=== PATIENT | female | born 1990 | race Caucasian/White ===

== ENCOUNTER 2019-03-21 03:04 | Inpatient (IN) | payer MEDICAID ==
[2019-03-21] MEDS ORDERED: Carboprost Tromethamine 250 MCG/1 ML Amp IM PRN (03:06)
[2019-03-21] MEDS ORDERED: Methylergonovine 0.2 MG/1 ML Amp IM PRN (03:06)
[2019-03-21] MEDS ORDERED: Nalbuphine 10 MG/1 ML Vial IVPUSH PRN (03:06)
[2019-03-21] MEDS ORDERED: Butorphanol 1 MG/ML SDV IVPUSH PRN (03:06)
[2019-03-21] MEDS ORDERED: Sodium Chloride 0.9% 10 ML Syringe FLUSH PRN (03:06)
[2019-03-21] MEDS ORDERED: Water For Irrigation,Sterile 1,000 ML Container IRR PRN (03:06)
[2019-03-21] MEDS ORDERED: Lidocaine 1% 50 ML MDV INJECT PRN (03:06)
[2019-03-21] MEDS ORDERED: Sodium Chloride 0.9% 10 ML SDV IV PRN (03:06)
[2019-03-21] MEDS ORDERED: Tranexamic Acid 1,000 MG in Sodium Chloride 0.9% 100 ML IV PRN (03:06)
[2019-03-21] MEDS ORDERED: Misoprostol 200 MCG Tab PO PRN (03:06)
[2019-03-21] MEDS ORDERED: Oxytocin/0.9 % Sodium Chloride 30 UNIT/500 ML BAG IV SCH (03:15)
[2019-03-21] MEDS ORDERED: Lactated Ringers 1,000 ML IV SCH (03:15)
[2019-03-21] MEDS ORDERED: Benzocaine/Menthol 20%-0.5% Spray 78 GM Cannister TOP PRN (04:03)
[2019-03-21] MEDS ORDERED: Witch Hazel Medicated Pads 40/Jar TOP PRN (04:03)
[2019-03-21] MEDS ORDERED: Bisacodyl 10 MG Supp RECTAL PRN (04:03)
[2019-03-21] MEDS ORDERED: Lanolin 100% Cream 7 GM Tube TOP PRN (04:03)
[2019-03-21] MEDS ORDERED: Docusate Sodium 100 MG Cap PO PRN (04:03)
[2019-03-21] MEDS ORDERED: Acetaminophen 500 MG Tab PO PRN (04:03)
[2019-03-21] MEDS ORDERED: oxyCODONE 5 MG Tab PO PRN (04:03)
[2019-03-21] MEDS ORDERED: Ibuprofen 800 MG Tab PO PRN (04:03)
[2019-03-21] MEDS ORDERED: Diphtheria,Pertussis(Acell),Tetanus Vaccine 0.5 ML Syringe IM ONE (04:03)
--- NOTE | 2019-03-21 04:10 | PCM.OPNOTE ---
- General Post-Op/Procedure Note Date of Surgery/Procedure: 03/21/19 Operative Procedure(s): Spontaneous vaginal delivery Findings: Live male infant, SLIM position, Apgars 8/9, weight 3720g, umbilical cord gases pending Shoulder dystocia lasting less than 30 seconds Placenta intact with 3-vessel cord Pre Op Diagnosis: 28yo at 39w4d by patient-stated ZURDO Post-Op Diagnosis: 28yo s/p spontaneous vaginal delivery. Shoulder dystocia Primary Surgeon: Lalita Waters Pathology: Placenta, cord blood, cord gases EBL in mLs: 200 Complications: None Condition: Good
[2019-03-21] MEDS ORDERED: FLU Vacc QS2019-20(6MOS+)/PF 60 MCG/0.5 ML SYRINGE IM ONE (09:00)
--- NOTE | 2019-03-21 10:32 | HP ---
DATE OF : 1990 PRIMARY CARE PHYSICIAN: LUCAS Barriga CHIEF COMPLAINT: Contractions. HISTORY OF PRESENT ILLNESS: This is a 28-year-old, G3, P1-0-0-1 at 39 weeks and 4 days gestation by patient stated ZURDO, who presents in active labor. She reports contractions began at 5 or 6 p.m. She denies leakage of fluid and vaginal bleeding. She reports feeling baby move. She has not received care for this and her due date is based on her last menstrual period. PAST OBSTETRIC HISTORY: Spontaneous vaginal delivery x1, spontaneous , status post D and C x1. PAST GYNECOLOGIC HISTORY: Denies any history of abnormal Pap, last several years ago. PAST MEDICAL HISTORY: Denies. PAST SURGICAL HISTORY: D and C, colonoscopy, endoscopy. SOCIAL HISTORY: Tobacco use. Denies other drug or alcohol abuse. FAMILY HISTORY: Noncontributory. ALLERGIES: No known drug allergies. MEDICATIONS: None. PHYSICAL EXAMINATION: VITAL SIGNS: Blood pressure 128/56, heart rate 116, heart rate 130 baseline, moderate variability, positive accelerations, early decelerations. Tocometer contractions every 2 to 3 minutes. GENERAL: No apparent distress. CARDIOVASCULAR: Regular rate and rhythm. LUNGS: Clear to auscultation. ABDOMEN: Soft, gravid, nondistended, nontender. EXTREMITIES: No edema. GENITOURINARY: On sterile vaginal exam, complete cervical dilation with bulgy bag of water. ASSESSMENT AND PLAN: 1. This is a 28-year-old, G3, P1-0-0-1 at 39 and 4 weeks who presents in active labor with full cervical dilation. 2. GBS unknown. Per guidelines, no antibiotics indicated at this time. 3. No care. We will obtain labs and urine drug screen. 4. Anticipate spontaneous vaginal delivery shortly. KEYON / TONI /[id number] NETO
--- NOTE | 2019-03-21 10:44 | OR ---
SURGEON: Lalita Waters MD DATE OF PROCEDURE: 03/21/2019 PREOPERATIVE DIAGNOSIS: A 28-year-old G3, P1, at 39 weeks and 4 days gestation by patient stated ZURDO. POSTOPERATIVE DIAGNOSES: 1. A 28-year-old G3, P2, status post spontaneous vaginal delivery. 2. Shoulder dystocia. PROCEDURE: Spontaneous vaginal delivery. ANESTHESIA: None. ESTIMATED BLOOD LOSS: 200 mL. FINDINGS: Live male in right occiput anterior position. score 8 and 9 at 1 and 5 minutes respectively. Weight 3720 g. Cord gases pending. Shoulder dystocia lasting less than 30 seconds, relieved with suprapubic pressure and Oscar maneuver. Placenta intact and with 3-vessel cord. DESCRIPTION OF PROCEDURE: The patient presented to Labor and Delivery after contractions began at approximately 5 p.m. On vaginal exam, she was found to be completely dilated with a bulging bag of water. The patient was admitted to Labor and Delivery for expectant management of labor. She had received no care. She was GBS unknown status per guidelines. No antibiotics were indicated. The patient began pushing. Spontaneous rupture of membranes occurred with clear fluid noted. Anterior lip of the cervix was noted after rupture of membranes. This was reduced well with the patient pushing. The patient pushed to deliver a live male infant. The head was delivered and the shoulders did not follow quickly. The hips were flexed with Oscar maneuver and suprapubic pressure was given along with maternal pushing efforts. The shoulder was subsequently delivered followed by the remainder of the body and nuchal cord x1. It was reduced after delivery of the body. The was placed on the maternal abdomen for nursing care. After approximately 45 seconds, the cord was clamped and cut. The Pitocin was begun for uterine tone and prevention of hemorrhage. The placenta delivered via the Cullen-Lynn maneuver and intact with 3-vessel cord. Cord gases were obtained. The perineum was inspected and no lacerations were noted. The fundus was firm 2 cm below the umbilicus. Bleeding was scant. The patient and infant tolerated the delivery well. [id number] / MODL /[id number]
[2019-03-22] MEDS ORDERED: Measles, Mumps & Rubella Vaccine 0.5 ML SDV SUBCUT ONE (08:37)
--- NOTE | 2019-03-22 08:42 | PCM.PNPP ---
- General Info Date of Service: 03/22/19 Admission Dx/Problem (Free Text): Minimal lochia. Functional Status: Reports: Pain Controlled, Tolerating Diet, Ambulating, Urinating - Review of Systems General: Reports: No Symptoms HEENT: Reports: No Symptoms Pulmonary: Reports: No Symptoms. Denies: Shortness of Breath Cardiovascular: Reports: No Symptoms. Denies: Chest Pain Gastrointestinal: Reports: No Symptoms Genitourinary: Reports: No Symptoms Musculoskeletal: Reports: No Symptoms Skin: Reports: No Symptoms Neurological: Reports: No Symptoms Psychiatric: Reports: No Symptoms - Patient Data Vital Signs - Most Recent: Last Vital Signs Temp 36.0 C 03/22/19 08:00 Pulse 72 03/22/19 08:00 Resp 17 03/22/19 08:00 BP 106/64 03/22/19 08:00 Pulse Ox 98 03/22/19 08:00 Weight - Most Recent: 160 kg Lab Results - Last 24 Hours: Laboratory Results - last 24 hr 03/22/19 Range/Units 05:42 Hgb 12.0 (12.0-16.0) g/dL Hct 36.2 (36.0-46.0) % Med Orders - Current: Current Medications Acetaminophen (Tylenol Extra Strength) 1,000 mg PO Q6H PRN PRN Reason: Pain Last Admin: 03/21/19 13:48 Dose: 1,000 mg Benzocaine/Menthol (Dermoplast Pain Relief 20%-0.5% [place]) 78 gm TOP ASDIRECTED PRN PRN Reason: Perineal Comfort Measure Bisacodyl (Dulcolax) 10 mg RECTAL ONETIME PRN PRN Reason: Constipation Butorphanol Tartrate (Stadol) 1 mg IVPUSH ASDIRECTED PRN PRN Reason: Pain Carboprost Tromethamine (Hemabate Ds) 250 mcg IM ASDIRECTED PRN PRN Reason: Post Hemorrhage Docusate Sodium (Colace) 100 mg PO BID PRN PRN Reason: Constipation Emollient Ointment (Lansinoh Hpa) 0 gm TOP ASDIRECTED PRN PRN Reason: Sore Nipples Lactated Ringer's (Ringers, Lactated) 1,000 mls @ 150 mls/hr IV ASDIRECTED RAJEEV Oxytocin/Sodium Chloride (Oxytocin 30 Unit/500 Ml-Ns) 30 unit in 500 mls @ 999 mls/hr IV TITRATE RAJEEV Last Admin: 03/21/19 03:45 Dose: 999 mls/hr Tranexamic Acid 1,000 mg/ (Sodium Chloride) 110 mls @ 660 mls/hr IV ONETIME PRN PRN Reason: Bleeding Ibuprofen (Motrin) 800 mg PO Q8H PRN PRN Reason: Pain Lidocaine HCl (Xylocaine 1%) 50 ml INJECT ONETIME PRN PRN Reason: Laceration repair Measles/Mumps/Rubella Vaccine Live (M-M-R Ii Vaccine) 0.5 ml SUBCUT .ONCE ONE Stop: 03/22/19 08:38 Methylergonovine Maleate (Methergine) 0.2 mg IM ASDIRECTED PRN PRN Reason: Post Hemorrhage Misoprostol (Cytotec) 200 mcg PO ONETIME PRN PRN Reason: Post Hemorrhage Nalbuphine HCl (Nubain) 10 mg IVPUSH ASDIRECTED PRN PRN Reason: Pain (severe 7-10) Oxycodone HCl (Oxycodone) 5 mg PO Q2H PRN PRN Reason: Pain Sodium Chloride (Saline Flush) 10 ml FLUSH ASDIRECTED PRN PRN Reason: Keep Vein Open Sodium Chloride (Normal Saline) 10 ml IV ASDIRECTED PRN PRN Reason: IV Use Sterile Water (Sterile Water For Irrigation) 1,000 ml IRR ASDIRECTED PRN PRN Reason: delivery Last Admin: 03/21/19 03:35 Dose: 1,000 ml Witch Lucille (Tucks) 1 pad TOP ASDIRECTED PRN PRN Reason: comfort care Discontinued Medications Diphtheria/Tetanus/Acell Pertussis (Adacel) 0.5 ml IM .ONCE ONE Stop: 03/21/19 04:04 Influenza Virus Vaccine (Pharmacy To Dose - Influenza Vaccine) 1 each IM ONETIME ONE Stop: 03/21/19 05:26 Influenza Virus Vaccine (Fluzone Quad [id number] Syringe) 60 mcg IM .ONCE ONE Stop: 03/21/19 09:01 - Interaction Disposition, : at Bedside Infant Feeding: Attempted ; Nursed Fair/Poor, Bottle Fed Infant - Recovery Exam Fundal Tone: Firm Fundal Level: 1 Fingerbreadths Below Umbilicus Fundal Placement: Midline Lochia Amount: Scant Lochia Color: Rubra/Red Episiotomy/Laceration: None Bladder Status: Voiding Urinary Elimination: Voided - Exam General: Alert, Oriented Neck: Supple Lungs: Clear to Auscultation, Normal Respiratory Effort Cardiovascular: Regular Rate, Regular Rhythm GI/Abdominal Exam: Soft, Non-Tender Extremities: Normal Inspection, No Pedal Edema Skin: Warm, Dry, Intact Neurological: No New Focal Deficit Psy/Mental Status: Alert, Normal Affect, Normal Mood - Problem List & Annotations (1) Vaginal delivery SNOMED Code(s): 591357628 Code(s): O80 - ENCOUNTER FOR FULL-TERM UNCOMPLICATED DELIVERY Status: Acute Current Visit: No - Problem List Review Problem List Initiated/Reviewed/Updated: Yes - My Orders Last 24 Hours: My Active Orders 03/22/19 08:37 Vaccines to be Administered [RC] PER UNIT ROUTINE Measles, Mumps & Rubella [M-M-R II Vaccine] 0.5 ml SUBCUT .ONCE ONE - Assessment Assessment:: 28yo PPD#1 s/p at 39w4d - Plan Plan:: 1. Anticipate discharge home tomorrow, after baby cleared by peds - staying due to GBS unknown status. 2. Breast and bottle feeding. 3. Will receive Tdap, MMR, and influenza vaccines tomorrow.
[2019-03-23] MEDS ORDERED: FLU Vacc QS2019-20(6MOS+)/PF 60 MCG/0.5 ML SYRINGE IM ONE (12:00)
[2019-03-23] MEDS ORDERED: Measles, Mumps & Rubella Vaccine 0.5 ML SDV SUBCUT ONE (12:00)
--- NOTE | 2019-03-23 12:03 | PCM.PNPP ---
- General Info Date of Service: 03/23/19 Functional Status: Reports: Pain Controlled, Tolerating Diet, Ambulating, Urinating - Review of Systems General: Reports: No Symptoms HEENT: Reports: No Symptoms Pulmonary: Reports: No Symptoms Cardiovascular: Reports: No Symptoms Gastrointestinal: Reports: No Symptoms Genitourinary: Reports: No Symptoms Musculoskeletal: Reports: No Symptoms Skin: Reports: No Symptoms Neurological: Reports: No Symptoms Psychiatric: Reports: No Symptoms - Patient Data Vital Signs - Most Recent: Last Vital Signs Temp 36.4 C 03/23/19 07:40 Pulse 62 03/23/19 07:40 Resp 16 03/23/19 07:40 BP 116/58 L 03/23/19 07:40 Pulse Ox 96 03/23/19 07:40 Weight - Most Recent: 352 lb 11.834 oz Lab Results - Last 24 Hours: Laboratory Results - last 24 hr 03/21/19 Range/Units 04:35 RPR Non Reactive (NonRea<1:1) Med Orders - Current: Current Medications Acetaminophen (Tylenol Extra Strength) 1,000 mg PO Q6H PRN PRN Reason: Pain Last Admin: 03/21/19 13:48 Dose: 1,000 mg Benzocaine/Menthol (Dermoplast Pain Relief 20%-0.5% [place]) 78 gm TOP ASDIRECTED PRN PRN Reason: Perineal Comfort Measure Bisacodyl (Dulcolax) 10 mg RECTAL ONETIME PRN PRN Reason: Constipation Butorphanol Tartrate (Stadol) 1 mg IVPUSH ASDIRECTED PRN PRN Reason: Pain Carboprost Tromethamine (Hemabate Ds) 250 mcg IM ASDIRECTED PRN PRN Reason: Post Hemorrhage Docusate Sodium (Colace) 100 mg PO BID PRN PRN Reason: Constipation Emollient Ointment (Lansinoh Hpa) 0 gm TOP ASDIRECTED PRN PRN Reason: Sore Nipples Last Admin: 03/22/19 15:52 Dose: 1 applic Lactated Ringer's (Ringers, Lactated) 1,000 mls @ 150 mls/hr IV ASDIRECTED RAJEEV Oxytocin/Sodium Chloride (Oxytocin 30 Unit/500 Ml-Ns) 30 unit in 500 mls @ 999 mls/hr IV TITRATE RAJEEV Last Admin: 03/21/19 03:45 Dose: 999 mls/hr Tranexamic Acid 1,000 mg/ (Sodium Chloride) 110 mls @ 660 mls/hr IV ONETIME PRN PRN Reason: Bleeding Ibuprofen (Motrin) 800 mg PO Q8H PRN PRN Reason: Pain Influenza Virus Vaccine (Fluzone Quad Syringe) 60 mcg IM .ONCE ONE Stop: 03/23/19 12:01 Lidocaine HCl (Xylocaine 1%) 50 ml INJECT ONETIME PRN PRN Reason: Laceration repair Measles/Mumps/Rubella Vaccine Live (M-M-R Ii Vaccine) 0.5 ml SUBCUT .ONCE ONE Stop: 03/23/19 12:01 Methylergonovine Maleate (Methergine) 0.2 mg IM ASDIRECTED PRN PRN Reason: Post Hemorrhage Misoprostol (Cytotec) 200 mcg PO ONETIME PRN PRN Reason: Post Hemorrhage Nalbuphine HCl (Nubain) 10 mg IVPUSH ASDIRECTED PRN PRN Reason: Pain (severe 7-10) Oxycodone HCl (Oxycodone) 5 mg PO Q2H PRN PRN Reason: Pain Sodium Chloride (Saline Flush) 10 ml FLUSH ASDIRECTED PRN PRN Reason: Keep Vein Open Sodium Chloride (Normal Saline) 10 ml IV ASDIRECTED PRN PRN Reason: IV Use Sterile Water (Sterile Water For Irrigation) 1,000 ml IRR ASDIRECTED PRN PRN Reason: delivery Last Admin: 03/21/19 03:35 Dose: 1,000 ml [place] (Tucks) 1 pad TOP ASDIRECTED PRN PRN Reason: comfort care Discontinued Medications Diphtheria/Tetanus/Acell Pertussis (Adacel) 0.5 ml IM .ONCE ONE Stop: 03/21/19 04:04 Last Admin: 03/22/19 18:15 Dose: Not Given Influenza Virus Vaccine (Pharmacy To Dose - Influenza Vaccine) 1 each IM ONETIME ONE Stop: 03/21/19 05:26 Influenza Virus Vaccine (Fluzone Quad Syringe) 60 mcg IM .ONCE ONE Stop: 03/21/19 09:01 Measles/Mumps/Rubella Vaccine Live (M-M-R Ii Vaccine) 0.5 ml SUBCUT .ONCE ONE Stop: 03/22/19 08:38 Last Admin: 03/23/19 08:54 Dose: Not Given - Infant Interaction Infant Disposition, : [place] at Bedside Infant Feeding: Continues to Breastfeed Support Person: Mother - Recovery Exam Fundal Tone: Firm Fundal Level: At Umbilicus Fundal Placement: Midline Lochia Amount: Scant Lochia Color: Rubra/Red Perineum Description: Intact, Minimal Bruising/Swelling Episiotomy/Laceration: None Bladder Status: Voiding Urinary Elimination: Voided - Exam General: Alert, Oriented, No Acute Distress HEENT: Pupils Equal, Pupils Reactive Neck: Supple, Trachea Midline Lungs: Normal Respiratory Effort GI/Abdominal Exam: Soft, Non-Tender Extremities: Normal Inspection, Non-Tender, No Pedal Edema Skin: Warm, Dry, Intact Neurological: No New Focal Deficit Psy/Mental Status: Alert, Normal Affect, Normal Mood - Problem List Review Problem List Initiated/Reviewed/Updated: Yes - My Orders Last 24 Hours: My Active Orders 03/23/19 11:53 Ready for Discharge [RC] PER UNIT ROUTINE - Assessment Assessment:: 28yo PPD#2 s/p at 39w4d - Plan Plan:: 1. Anticipate discharge home today 2. Breast and bottle feeding. 3. Will receive Tdap, MMR, and influenza vaccines tomorrow 4. Hgb 12.0 , stable with minimal bleeding 5. Plan to follow up with [facility] at 6wks
== END 2019-03-23 13:50 | disposition home or self-care (01) | DRG 807 ==
LOC: MW.OBCHECK 03:04 → MW.OB 03:05 → MW.OBCHECK 03:06 → OBSVTOIN 03:45 → MW.OB 09:25
PROVIDERS: ADMIT Obstetrics & Gynecology; ATTEND Obstetrics & Gynecology
PROC: 10E0XZZ Delivery of Products of Conception, External Approach (ICD-10-PCS; principal; 2019-03-21)
DX: O66.0 Obstructed labor due to shoulder dystocia (principal); O69.81X0 Labor and delivery complicated by cord around neck, without compression, not applicable or unspecified; Z23 Encounter for immunization; Z3A.39 39 weeks gestation of pregnancy; Z37.0 Single live birth
CPT/HCPCS: 36415; 59025; 59409; 80305-QW; 82803; 85014; 85018; 85027; 86593; 86762; 86803; 86850; 86900; 86901; 87340; 90471; 90686; 90707; A9270-GY; J2590

== ENCOUNTER 2020-03-31 09:15 | Inpatient (IN) | payer MEDICAID ==
[2020-03-31] MEDS ORDERED: Sodium Chloride 0.9% 10 ML SDV IV PRN (09:17)
[2020-03-31] MEDS ORDERED: Lidocaine 1% 50 ML MDV INJECT PRN (09:17)
[2020-03-31] MEDS ORDERED: Carboprost Tromethamine 250 MCG/1 ML Amp IM PRN (09:17)
[2020-03-31] MEDS ORDERED: Water For Irrigation,Sterile 1,000 ML Container IRR PRN (09:17)
[2020-03-31] MEDS ORDERED: Misoprostol 200 MCG Tab PO PRN (09:17)
[2020-03-31] MEDS ORDERED: Tranexamic Acid 1,000 MG in Sodium Chloride 0.9% 100 ML IV PRN (09:17)
[2020-03-31] MEDS ORDERED: Methylergonovine 0.2 MG/1 ML Amp IM PRN (09:17)
[2020-03-31] MEDS ORDERED: Sodium Chloride 0.9% 10 ML Syringe FLUSH PRN (09:17)
[2020-03-31] MEDS ORDERED: Sodium Chloride 0.9% 2.5 ML Syringe FLUSH PRN (09:17)
[2020-03-31] MEDS ORDERED: Oxytocin/0.9 % Sodium Chloride 30 UNIT/500 ML BAG IV SCH (09:30)
[2020-03-31] MEDS ORDERED: Lactated Ringers 1,000 ML IV SCH (09:30)
[2020-03-31] MEDS ORDERED: oxyCODONE 5 MG Tab PO PRN (09:40)
[2020-03-31] MEDS ORDERED: Docusate Sodium 100 MG Cap PO PRN (09:40)
[2020-03-31] MEDS ORDERED: Witch Hazel Medicated Pads 40/Jar TOP PRN (09:40)
[2020-03-31] MEDS ORDERED: Ibuprofen 400 MG Tab PO PRN (09:40)
[2020-03-31] MEDS ORDERED: Bisacodyl 10 MG Supp RECTAL PRN (09:40)
[2020-03-31] MEDS ORDERED: Lanolin 100% Cream 7 GM Tube TOP PRN (09:40)
[2020-03-31] MEDS ORDERED: Acetaminophen 500 MG Tab PO PRN ×2 (09:40)
[2020-03-31] MEDS ORDERED: Benzocaine/Menthol 20%-0.5% Spray 78 GM Cannister TOP PRN (09:40)
[2020-03-31] MEDS ORDERED: Ibuprofen 800 MG Tab ONE (09:47)
--- NOTE | 2020-03-31 12:04 | PCM.LDHP ---
L&D History of Present Illness - General Date of Service: 03/31/20 Admit Problem/Dx: Patient Status Order with Admit Dx/Problem 03/31/20 09:17 Patient Status [ADT] Routine 03/31/20 09:40 Patient Status [ADT] Routine Admission Diagnosis/Problem Admission Diagnosis/Problem Source of Information: Patient History Limitations: Reports: No Limitations - History of Present Illness Pain Score: 5 Improves with: Reports: None Worsens with: Reports: None Associated Symptoms: Reports: N - Related Data Allergies/Adverse Reactions: Allergies Allergy/AdvReac Type Severity Reaction Status Date / Time No Known Allergies Allergy Verified 03/31/20 10:14 Home Medications: Home Meds Acetaminophen [Tylenol Extra Strength] 500 mg PO Q4H PRN #1 tab 12/02/13 [Rx] Docusate Sodium [Colace] 100 mg PO BID PRN cap 03/23/19 [Rx] Ibuprofen [Motrin] 800 mg PO Q8H PRN tablet 03/23/19 [Rx] bisacodyL [Dulcolax] 10 mg RECTAL ONETIME PRN supp 03/23/19 [Rx] Past Medical History - Past Health History Medical/Surgical History: Denies Medical/Surgical History POLISHER NUMERAL History: Reports: , Spontaneous , Therapeutic , Other (See Below) Other OB/BYN History: D&C 2011 Social & Family History - Family History Family Medical History: Noncontributory - Caffeine Use Caffeine Use: Reports: Soda H&P Review of Systems - Review of Systems: Review Of Systems: See Below General: Reports: No Symptoms HEENT: Reports: No Symptoms Pulmonary: Reports: No Symptoms Cardiovascular: Reports: No Symptoms Gastrointestinal: Reports: No Symptoms Genitourinary: Reports: No Symptoms Musculoskeletal: Reports: No Symptoms Skin: Reports: No Symptoms Psychiatric: Reports: No Symptoms Neurological: Reports: No Symptoms Hematologic/Lymphatic: Reports: No Symptoms Immunologic: Reports: No Symptoms L&D Exam - Exam Exam: See Below - Vital Signs Weight: 63.503 kg - Exam General: Alert, Oriented HEENT: PERRLA, Conjunctiva Clear, EACs Clear, EOMI, Hearing Intact, Mucosa Moist & Monon, Nares Patent, Normal Nasal Septum, Posterior Pharynx Clear, TMs Clear Neck: Supple, Trachea Midline Lungs: Clear to Auscultation, Normal Respiratory Effort Cardiovascular: Regular Rate, Regular Rhythm GI/Abdominal Exam: Normal Bowel Sounds, Soft, Non-Tender, No Organomegaly, No Distention, No Abnormal Bruit, No Mass, Pelvis Stable Rectal Exam: Normal Exam, Normal Rectal Tone Genitourinary: Normal external exam, Normal bimanual exam, Normal speculum exam Back Exam: Normal Inspection, Full Range of Motion Extremities: Normal Inspection, Normal Range of Motion, Non-Tender, No Pedal Edema, Normal Capillary Refill Skin: Warm, Dry, Intact Neurological: Cranial Nerves Intact, Reflexes Equal Bilateral Psychiatric: Alert, Normal Affect, Normal Mood - Patient Data Lab Results Last 24 hrs: Laboratory Results - last 24 hr 03/31/20 03/31/20 03/31/20 Range/Units 09:49 09:49 10:28 WBC 11.16 H (4.0-11.0) K/uL RBC 3.94 L (4.30-5.90) M/uL Hgb 11.5 L (12.0-16.0) g/dL Hct 35.3 L (36.0-46.0) % MCV 89.6 (80.0-98.0) fL MCH 29.2 (27.0-32.0) pg MCHC 32.6 (31.0-37.0) g/dL RDW Std Deviation 43.7 (28.0-62.0) fl RDW Coeff of [place] 13 (11.0-15.0) % Plt Count 274 (150-400) K/uL MPV 9.80 (7.40-12.00) fL Nucleated RBC % 0.0 /100WBC Nucleated RBCs # 0 K/uL SARS-CoV-2 RNA (CARINE) NEGATIVE (NEGATIVE) Blood Type A POSITIVE Antibody Screen NEGATIVE Result Diagrams: 03/31/20 09:49 Problem List Initiated/Reviewed/Updated: Yes Orders Last 24hrs: Active Orders 24 hr Category Date Time Status Patient Status [ADT] Routine ADT 03/31/20 09:40 Active May Shower [RC] ASDIRECTED Care 03/31/20 09:17 Active Peripheral IV Care [RC] PRN Care 03/31/20 09:17 Active Up ad Lila [RC] ASDIRECTED Care 03/31/20 09:17 Active Vital Signs [RC] PER UNIT ROUTINE Care 03/31/20 09:17 Active Regular Diet [DIET] Diet 03/31/20 Breakfast Active CHLAMYDIA AND GONORRHEA BY TMA Routine Lab 03/31/20 09:17 Ordered CULTURE GROUP B STREP [RM] Routine Lab 03/31/20 09:17 Ordered DRUG SCREEN, URINE [URCHEM] Routine Lab 03/31/20 09:17 Ordered HEMOGLOBIN/HEMATOCRIT,HH [HEME] Timed Lab 04/01/20 05:11 Ordered RPR (SYPHILIS SERO) W/ RFLX [REF] Routine Lab 03/31/20 09:49 Received UA RFX TRAVIS AND CULT IF INDIC [URIN] Routine Lab 03/31/20 09:17 Ordered Acetaminophen [Tylenol Extra Strength] Med 03/31/20 09:40 Active 1,000 mg PO Q4H PRN Acetaminophen [Tylenol Extra Strength] Med 03/31/20 09:40 Active 500 mg PO Q4H PRN Benzocaine/Menthol [Dermoplast Pain Relief 20%-0.5% Med 03/31/20 09:40 Active [place]] 78 gm TOP ASDIRECTED PRN Carboprost Tromethamine [Hemabate DS] Med 03/31/20 09:17 Active 250 mcg IM ASDIRECTED PRN Docusate Sodium [Colace] Med 03/31/20 09:40 Active 100 mg PO BID PRN Ibuprofen [Motrin] Med 03/31/20 09:40 Active 400 mg PO Q4H PRN Ibuprofen [Motrin] Med 03/31/20 09:40 Active 800 mg PO Q6H PRN Lactated Ringers [Ringers, Lactated] 1,000 ml Med 03/31/20 09:30 Active IV ASDIRECTED Lanolin [Lansinoh HPA] Med 03/31/20 09:40 Active See Dose Instructions TOP ASDIRECTED PRN Lidocaine 1% [Xylocaine 1%] Med 03/31/20 09:17 Active 50 ml INJECT ONETIME PRN Methylergonovine [Methergine] Med 03/31/20 09:17 Active 0.2 mg IM ASDIRECTED PRN Oxytocin/0.9 % Sodium Chloride [Oxytocin 30 Unit/500 ML Med 03/31/20 09:30 Active -NS] 30 unit in 500 ml IV TITRATE Sodium Chloride 0.9% [Normal Saline] Med 03/31/20 09:17 Active 10 ml IV ASDIRECTED PRN Sodium Chloride 0.9% [Saline Flush] Med 03/31/20 09:17 Active 10 ml FLUSH ASDIRECTED PRN Sodium Chloride 0.9% [Saline Flush] Med 03/31/20 09:17 Active 2.5 ml FLUSH ASDIRECTED PRN Tranexamic Acid [Cyklokapron] 1,000 mg Med 03/31/20 09:17 Active Sodium Chloride 0.9% [Normal Saline] 100 ml IV ONETIME Water For Irrigation,Sterile [Sterile Water for Med 03/31/20 09:17 Active Irrigation] 1,000 ml IRR ASDIRECTED PRN bisacodyL [Dulcolax] Med 03/31/20 09:40 Active 10 mg RECTAL ONETIME PRN miSOPROStoL [Cytotec] Med 03/31/20 09:17 Active 200 mcg PO ONETIME PRN oxyCODONE Med 03/31/20 09:40 Active 5 mg PO Q2H PRN witch Lucille [Tucks] Med 03/31/20 09:40 Active 1 pad TOP ASDIRECTED PRN Assess Lochia [WOMSER] Per Unit Routine Oth 03/31/20 09:40 Ordered Assess Uterine Involution [WOMSER] Per Unit Routine Oth 03/31/20 09:40 Ordered Peripheral IV Discontinue [OM.PC] Routine Oth 03/31/20 09:40 Ordered Peripheral IV Insertion Adult [OM.PC] Routine Oth 03/31/20 09:17 Ordered Resuscitation Status Routine Resus Stat 03/31/20 09:17 Ordered Medication Orders Acetaminophen (Tylenol Extra Strength) 500 mg PO Q4H PRN PRN Reason: Pain Acetaminophen (Tylenol Extra Strength) 1,000 mg PO Q4H PRN PRN Reason: Pain Benzocaine/Menthol (Dermoplast Pain Relief 20%-0.5% [place]) 78 gm TOP ASDIRECTED PRN PRN Reason: Perineal Comfort Measure Bisacodyl (Dulcolax) 10 mg RECTAL ONETIME PRN PRN Reason: Constipation Carboprost Tromethamine (Hemabate Ds) 250 mcg IM ASDIRECTED PRN PRN Reason: Post Hemorrhage Docusate Sodium (Colace) 100 mg PO BID PRN PRN Reason: Constipation Emollient Ointment (Lansinoh Hpa) 0 gm TOP ASDIRECTED PRN PRN Reason: Sore Nipples Oxytocin/Sodium Chloride (Oxytocin 30 Unit/500 Ml-Ns) 30 unit in 500 mls @ 999 mls/hr IV TITRATE [facility] Last Admin: 03/31/20 09:25 Dose: 999 mls/hr Documented by: LASHONDA Tranexamic Acid 1,000 mg/ (Sodium Chloride) 110 mls @ 660 mls/hr IV ONETIME PRN PRN Reason: Bleeding Lactated Ringer's (Ringers, Lactated) 1,000 mls @ 150 mls/hr IV ASDIRECTED RAJEEV Ibuprofen (Motrin) 400 mg PO Q4H PRN PRN Reason: Pain Ibuprofen (Motrin) 800 mg PO Q6H PRN PRN Reason: Pain Lidocaine HCl (Xylocaine 1%) 50 ml INJECT ONETIME PRN PRN Reason: Laceration repair Methylergonovine Maleate (Methergine) 0.2 mg IM ASDIRECTED PRN PRN Reason: Post Hemorrhage Misoprostol (Cytotec) 200 mcg PO ONETIME PRN PRN Reason: Post Hemorrhage Oxycodone HCl (Oxycodone) 5 mg PO Q2H PRN PRN Reason: Pain Sodium Chloride (Saline Flush) 10 ml FLUSH ASDIRECTED PRN PRN Reason: Keep Vein Open Sodium Chloride (Saline Flush) 2.5 ml FLUSH ASDIRECTED PRN PRN Reason: Keep Vein Open Sodium Chloride (Normal Saline) 10 ml IV ASDIRECTED PRN PRN Reason: IV Use Sterile Water (Sterile Water For Irrigation) 1,000 ml IRR ASDIRECTED PRN PRN Reason: delivery Witch [place] (Tucks) 1 pad TOP ASDIRECTED PRN PRN Reason: comfort care Assessment/Plan Comment:: This patient is a 29 she is para 2002 she have no care in [facility] she have a home delivery and complicated and she is came to labor and delivery for evaluation of checkup at the time of their arrival the patient have completely delivered the placenta is delivered the fetus is crying and doing well pelvic examination revealed there is no tear no active bleeding. She will be admitted for 24-hour for observation
[2020-03-31] MEDS: Ibuprofen 800 MG Tab PO PRN (19:31)
[2020-03-31] MEDS ORDERED: Diphtheria,Pertussis(Acell),Tetanus Vaccine 0.5 ML Syringe IM ONE (21:41)
[2020-04-01] MEDS: Ibuprofen 800 MG Tab PO PRN (04:45)
[2020-04-01] MEDS ORDERED: FLU Vacc QS2020-21 36MOS UP/PF 60 MCG/0.5 ML Syringe IM ONE (09:00)
--- NOTE | 2020-04-01 09:08 | PCM.DCSUM1 ---
Discharge Summary - Hospital Course Free Text/Narrative:: Discharge home with baby. Follow up in the clinic in 6 weeks for routine visit; sooner, if needed. Diagnosis: Stroke: No Modified Yola Scale: No Symptoms at All Modified Yola Scale Score: 0 - Discharge Data Discharge Date: 04/01/20 Discharge Disposition: Home, Self-Care 01 Condition: Good - Referral to Home Health Primary Care Physician: PCP None - Discharge Diagnosis/Problem(s) (1) Vaginal delivery SNOMED Code(s): 574357896 ICD Code: O80 - ENCOUNTER FOR FULL-TERM UNCOMPLICATED DELIVERY Status: Acute Current Visit: No - Patient Instructions Diet: Usual Diet as Tolerated, Regular Diet as Tolerated, Drink 8-10+ Glasses/Day Activity: Non Weight Bearing, No Strenuous Activities, Rest and Relax Today Driving: May Drive Today Showering/Bathing: May Shower Notify Provider of: Fever, Increased Pain, Swelling and Redness, Drainage - Discharge Plan Home Medications: Home Meds Acetaminophen [Tylenol Extra Strength] 500 mg PO Q4H PRN #1 tab 12/02/13 [Rx] Docusate Sodium [Colace] 100 mg PO BID PRN cap 03/23/19 [Rx] Ibuprofen [Motrin] 800 mg PO Q8H PRN tablet 03/23/19 [Rx] bisacodyL [Dulcolax] 10 mg RECTAL ONETIME PRN supp 03/23/19 [Rx] Referrals: [facility] [Outside] Santhosh Covington MD [Physician] - 05/12/20 3:00 pm - Discharge Summary/Plan Comment DC Time >30 min.: Yes - General Info Date of Service: 04/01/20 Admission Dx/Problem (Free Text: Patient Status Order with Admit Dx/Problem 03/31/20 09:17 Patient Status [ADT] Routine 03/31/20 09:40 Patient Status [ADT] Routine Admission Diagnosis/Problem Admission Diagnosis/Problem Functional Status: Reports: Pain Controlled - Review of Systems General: Reports: No Symptoms HEENT: Reports: No Symptoms Pulmonary: Reports: No Symptoms Cardiovascular: Reports: No Symptoms Gastrointestinal: Reports: No Symptoms Genitourinary: Reports: No Symptoms Musculoskeletal: Reports: No Symptoms Skin: Reports: No Symptoms Neurological: Reports: No Symptoms Psychiatric: Reports: No Symptoms - Patient Data Vitals - Most Recent: Last Vital Signs Temp 97.6 F 04/01/20 04:41 Pulse 86 04/01/20 04:41 Resp 17 03/31/20 21:42 BP 112/67 04/01/20 04:41 Pulse Ox 97 04/01/20 04:41 Weight - Most Recent: 140 lb Lab Results - Last 24 hrs: Laboratory Results - last 24 hr 03/31/20 03/31/20 03/31/20 Range/Units 09:49 09:49 10:28 WBC 11.16 H (4.0-11.0) K/uL RBC 3.94 L (4.30-5.90) M/uL Hgb 11.5 L (12.0-16.0) g/dL Hct 35.3 L (36.0-46.0) % MCV 89.6 (80.0-98.0) fL MCH 29.2 (27.0-32.0) pg MCHC 32.6 (31.0-37.0) g/dL RDW Std Deviation 43.7 (28.0-62.0) fl RDW Coeff of [place] 13 (11.0-15.0) % Plt Count 274 (150-400) K/uL MPV 9.80 (7.40-12.00) fL Nucleated RBC % 0.0 /100WBC Nucleated RBCs # 0 K/uL Urine Color Urine Appearance Urine pH (5.0-8.0) Ur Specific [place] (1.001-1.035) Urine Protein (NEGATIVE) mg/dL Urine Glucose (UA) (NEGATIVE) mg/dL Urine Ketones (NEGATIVE) mg/dL Urine Occult Blood (NEGATIVE) Urine Nitrite (NEGATIVE) Urine Bilirubin (NEGATIVE) Urine Urobilinogen (<2.0) EU/dL Ur Leukocyte Esterase (NEGATIVE) Urine RBC (0-2/HPF) Urine WBC (0-5/HPF) Ur Epithelial Cells (NONE-FEW) Urine Bacteria (NEGATIVE) Urine Mucus (NONE-MOD) Urine Opiates Screen (NEGATIVE) Ur Oxycodone Screen (NEGATIVE) Urine Methadone Screen (NEGATIVE) Ur Barbiturates Screen (NEGATIVE) Ur Phencyclidine Scrn (NEGATIVE) Ur Amphetamine Screen (NEGATIVE) U Methamphetamines Scrn (NEGATIVE) U Benzodiazepines Scrn (NEGATIVE) U Cocaine Metab Screen (NEGATIVE) U Marijuana (THC) Screen (NEGATIVE) SARS-CoV-2 RNA (CARINE) NEGATIVE (NEGATIVE) Blood Type A POSITIVE Antibody Screen NEGATIVE 03/31/20 03/31/20 04/01/20 Range/Units 21:43 21:43 05:45 WBC (4.0-11.0) K/uL RBC (4.30-5.90) M/uL Hgb 9.9 L (12.0-16.0) g/dL Hct 30.0 L (36.0-46.0) % MCV (80.0-98.0) fL MCH (27.0-32.0) pg MCHC (31.0-37.0) g/dL RDW Std Deviation (28.0-62.0) fl RDW Coeff of [place] (11.0-15.0) % Plt Count (150-400) K/uL MPV (7.40-12.00) fL Nucleated RBC % /100WBC Nucleated RBCs # K/uL Urine Color YELLOW Urine Appearance HAZY Urine pH 6.0 (5.0-8.0) Ur Specific [place] 1.025 (1.001-1.035) Urine Protein NEGATIVE (NEGATIVE) mg/dL Urine Glucose (UA) NEGATIVE (NEGATIVE) mg/dL Urine Ketones NEGATIVE (NEGATIVE) mg/dL Urine Occult Blood LARGE H (NEGATIVE) Urine Nitrite NEGATIVE (NEGATIVE) Urine Bilirubin NEGATIVE (NEGATIVE) Urine Urobilinogen 0.2 (<2.0) EU/dL Ur Leukocyte Esterase TRACE H (NEGATIVE) Urine RBC TOO NUMEROUS TO CT H (0-2/HPF) Urine WBC 1-3 (0-5/HPF) Ur Epithelial Cells FEW (NONE-FEW) Urine Bacteria FEW (NEGATIVE) Urine Mucus LIGHT (NONE-MOD) Urine Opiates Screen NEGATIVE (NEGATIVE) Ur Oxycodone Screen NEGATIVE (NEGATIVE) Urine Methadone Screen NEGATIVE (NEGATIVE) Ur Barbiturates Screen NEGATIVE (NEGATIVE) Ur Phencyclidine Scrn NEGATIVE (NEGATIVE) Ur Amphetamine Screen NEGATIVE (NEGATIVE) U Methamphetamines Scrn NEGATIVE (NEGATIVE) U Benzodiazepines Scrn NEGATIVE (NEGATIVE) U Cocaine Metab Screen NEGATIVE (NEGATIVE) U Marijuana (THC) Screen NEGATIVE (NEGATIVE) SARS-CoV-2 RNA (CARINE) (NEGATIVE) Blood Type Antibody Screen Med Orders - Current: Current Medications Acetaminophen (Tylenol Extra Strength) 500 mg PO Q4H PRN PRN Reason: Pain Acetaminophen (Tylenol Extra Strength) 1,000 mg PO Q4H PRN PRN Reason: Pain Last Admin: 04/01/20 04:46 Dose: 1,000 mg Documented by: Benzocaine/Menthol (Dermoplast Pain Relief 20%-0.5% [place]) 78 gm TOP ASDIRECTED PRN PRN Reason: Perineal Comfort Measure Last Admin: 03/31/20 20:58 Dose: 1 canister Documented by: Bisacodyl (Dulcolax) 10 mg RECTAL ONETIME PRN PRN Reason: Constipation Carboprost Tromethamine (Hemabate Ds) 250 mcg IM ASDIRECTED PRN PRN Reason: Post Hemorrhage Docusate Sodium (Colace) 100 mg PO BID PRN PRN Reason: Constipation Emollient Ointment (Lansinoh Hpa) 0 gm TOP ASDIRECTED PRN PRN Reason: Sore Nipples Oxytocin/Sodium Chloride (Oxytocin 30 Unit/500 Ml-Ns) 30 unit in 500 mls @ 999 mls/hr IV TITRATE [facility] Last Admin: 03/31/20 09:25 Dose: 999 mls/hr Documented by: Tranexamic Acid 1,000 mg/ (Sodium Chloride) 110 mls @ 660 mls/hr IV ONETIME PRN PRN Reason: Bleeding Lactated Ringer's (Ringers, Lactated) 1,000 mls @ 150 mls/hr IV ASDIRECTED RAJEEV Ibuprofen (Motrin) 400 mg PO Q4H PRN PRN Reason: Pain Ibuprofen (Motrin) 800 mg PO Q6H PRN PRN Reason: Pain Last Admin: 04/01/20 04:45 Dose: 800 mg Documented by: Lidocaine HCl (Xylocaine 1%) 50 ml INJECT ONETIME PRN PRN Reason: Laceration repair Methylergonovine Maleate (Methergine) 0.2 mg IM ASDIRECTED PRN PRN Reason: Post Hemorrhage Misoprostol (Cytotec) 200 mcg PO ONETIME PRN PRN Reason: Post Hemorrhage Oxycodone HCl (Oxycodone) 5 mg PO Q2H PRN PRN Reason: Pain Sodium Chloride (Saline Flush) 10 ml FLUSH ASDIRECTED PRN PRN Reason: Keep Vein Open Sodium Chloride (Saline Flush) 2.5 ml FLUSH ASDIRECTED PRN PRN Reason: Keep Vein Open Sodium Chloride (Normal Saline) 10 ml IV ASDIRECTED PRN PRN Reason: IV Use Sterile Water (Sterile Water For Irrigation) 1,000 ml IRR ASDIRECTED PRN PRN Reason: delivery Marleni Adkins (Tucks) 1 pad TOP ASDIRECTED PRN PRN Reason: comfort care Last Admin: 03/31/20 20:58 Dose: 1 tub Documented by: Discontinued Medications Diphtheria/Tetanus/Acell Pertussis (Adacel) 0.5 ml IM .ONCE ONE Stop: 03/31/20 21:42 Ibuprofen (Motrin) Confirm Administered Dose 800 mg .ROUTE .STK-MED ONE Stop: 03/31/20 09:48 Last Admin: 03/31/20 09:55 Dose: 800 mg Documented by: Influenza Virus Vaccine (Pharmacy To Dose - Influenza Vaccine) 1 each IM ONETIME ONE Stop: 03/31/20 21:42 Influenza Virus Vaccine (Afluria Quad 2020-21 (3yr Up)) 60 mcg IM .ONCE ONE Stop: 04/01/20 09:01 - Exam General: Reports: Alert, Oriented, Cooperative, No Acute Distress Lungs: Reports: Normal Respiratory Effort (Female) Exam: Deferred Rectal (Female) Exam: Deferred Back Exam: Reports: Full Range of Motion Extremities: Normal Range of Motion Neurological: Reports: No New Focal Deficit, Normal Speech, Normal Tone Psy/Mental Status: Reports: Alert, Normal Affect, Normal Mood
[2020-04-02 12:03] LABS: C.TRACHOMATIS BY TMA Negative (Negative); N.GONORRHOEAE BY TMA Negative (Negative)
== END 2020-04-01 12:34 | disposition home or self-care (01) | DRG 807 ==
LOC: MW.OBCHECK 09:15 → MW.OB 09:16 → MW.OBCHECK 09:18 → OBSVTOIN 09:19 → MW.OB 09:19
PROVIDERS: ADMIT Obstetrics & Gynecology; ATTEND Obstetrics & Gynecology
PROC: 10E0XZZ Delivery of Products of Conception, External Approach (ICD-10-PCS; principal; 2020-03-31)
DX: O80 Encounter for full-term uncomplicated delivery (principal); Z37.0 Single live birth; Z20.828 Contact with and (suspected) exposure to other viral communicable diseases
CPT/HCPCS: 36415; 80305-QW; 81001; 85014; 85018; 85027; 86592; 86850; 86900; 86901; 87081; 87086; 87491; 87591; A9270-GY; J2590; U0002